=== PATIENT | female | born 1965 | race Caucasian/White ===

== ENCOUNTER → 2018-07-13 | Outpatient (CLI) | payer OTHER ==
[~2018-07-13] MED LIST: ALLERCLEAR10 MG PO; ATENOLOL 25 MG25 M1 PO; CALCIUM 600 +1 EAC1 PO; CARAFATE 1 GM TA1 GM PO; FAMCICLOVIR250 MG PO; FLOVENT HFA 1110 MCG INH; LAMICTAL100 MG PO; LITHIUM CARBON300 M3 PO; LITHIUM CARBON300 M6 PO; PRILOSEC 20 MG20 MG PO; SEROQUEL 25 MG25 M1 PO; SINGULAIR 10 MG10 M1 PO; TUDORZA PRESS400 MCG IH
== END ==
LOC: M.RAD 07:20 → M.CT 08:15
DX: Z12.31 Encounter for screening mammogram for malignant neoplasm of breast (principal)

== ENCOUNTER → 2018-07-13 | Outpatient (CLI) | payer OTHER | LOC: M.CT 07:29 | DX: Z13.6 Encounter for screening for cardiovascular disorders (principal) ==

== ENCOUNTER → 2019-08-02 | Outpatient (CLI) | payer OTHER | LOC: M.RAD 10:54 | DX: Z12.31 Encounter for screening mammogram for malignant neoplasm of breast (principal) ==

== ENCOUNTER → 2020-07-11 | Outpatient (CLI) | payer OTHER | LOC: M.RAD 11:49 | PROVIDERS: ATTEND Family Medicine | DX: Z12.31 Encounter for screening mammogram for malignant neoplasm of breast (principal) ==